=== PATIENT | male | born 1965 | race Caucasian/White ===

== ENCOUNTER 2017-11-02 09:25 | Outpatient (CLI) | payer OTHER ==
[~2017-11-02 09:25] MED LIST: Iopamidol 370 76% 100 ML VIAL ONE
--- NOTE | 2017-11-02 15:43 | CT ---
CT ABDOMEN AND PELVIS WITH AND WITHOUT CONTRAST: Date: 11/02/17 HISTORY: R16.0, liver mass. K70.9, alcoholic for disease. COMPARISON: Ultrasound dated 10/23/17. FINDINGS: The lung bases are clear. No pericardial effusion. Mild diffuse hepatic steatosis. Within the right lobe of the liver, abutting the capsule, is a 1.3 cm mass with arterial phase hypere nhancement, which is isoattenuating on the delayed phase of contrast. This is a well-defined nodule w ith somewhat of a peripheral hypodense halo. This has a single major feature of hepatocellular carcin woody using LI-RADS criteria, although using ancillary feature of ultrasound visibility as a discrete n odule, this can be upgrade from a LI-RADS 3 to a LI-RADS 4. Spleen and pancreas are unremarkable. Aortic contour is nonaneurysmal. Adrenal glands unremarkable. Advanced degenerative change of left hip. Moderate facet arthrosis lower lumbar spine. Type III-B lum bosacral transitional vertebra. IMPRESSION: 1.2 cm mass right lobe of liver abutting the capsule, hepatic segment 5, with arterial phase hyperenh ancement with isodensity on the portal venous phase. Given the additional ancillary feature of discre te nodule on ultrasound, this can be upgraded from a LI-RADS 3 to a LI-RADS 4: Probably HCC. Recomme nd correlation with AFP. At a minimum, if AFP levels are normal, a follow-up MRI liver protocol in 3 months is recommended. POS: [facility]
== END 2017-11-02 09:26 | disposition home or self-care (01) ==
LOC: SCSCT 09:25
PROVIDERS: ATTEND Family Medicine
DX: K70.9 Alcoholic liver disease, unspecified (principal); R16.0 Hepatomegaly, not elsewhere classified
CPT/HCPCS: 74178

== ENCOUNTER 2018-01-12 12:00 | Outpatient (CLI) | payer OTHER ==
--- NOTE | 2018-01-12 13:39 | RAD ---
LEFT HIP TWO VIEWS: INDICATIONS: Left hip pain for six months. COMPARISON: None. FINDINGS: There is severe osteoarthrosis of the left hip. No acute fracture or subluxation is evident. There is mild degenerative change of the left SI joint. Mild enthesopathic change is seen off the anterior pelvis. IMPRESSION: Severe left hip osteoarthrosis. POS: [facility]
== END 2018-01-12 12:01 | disposition home or self-care (01) ==
LOC: SCSRAD 12:00
PROVIDERS: ATTEND Anesthesiology Pain Medicine
DX: M16.12 Unilateral primary osteoarthritis, left hip (principal)
CPT/HCPCS: 36415; 80053; 82550; 83520; 83615; 85007; 85027; 85060; 85652; 86038; 86140; 86160; 86225; 86235; 86376; 86644; 86645; 86663; 86664; 86665; 87040; 87389; 87480; 87491; 87510; 87591; 87660; 99204; G0463

== ENCOUNTER 2018-01-28 09:15 | Inpatient (IN) | payer OTHER ==
[2018-02-10] MEDS ORDERED: Sodium Chloride 0.9% 100 ML ONE (06:13)
[2018-02-10] MEDS ORDERED: CEFAZOLIN 2 GM/50 ML BAG ONE (06:13)
[2018-02-10] MEDS ORDERED: Tranexamic Acid 1,000 MG/10 ML VIAL ONE (06:13)
[2018-02-10] MEDS ORDERED: Vancomycin HCl 1.5 GM in Sodium Chloride 0.9% 250 ML 300 ML IVPB SCH (06:15)
[2018-02-10] MEDS ORDERED: Midazolam HCl 2 mg/2 ml Vial ONE (06:23)
[2018-02-10] MEDS ORDERED: Fentanyl 100 MCG/2 ML VIAL ONE ×2 (06:23→07:01)
[2018-02-10] MEDS ORDERED: Lidocaine 1% w/Epinephrine 1:100K 30 ML VIAL ONE (07:25)
[2018-02-10] MEDS ORDERED: Bupivacaine/Epinephrine 0.25% 30 ML VIAL ONE (07:26)
[2018-02-10] MEDS ORDERED: diphenhydrAMINE 25 MG CAP PO PRN (07:29)
[2018-02-10] MEDS ORDERED: Zolpidem Tartrate 5 MG TAB PO PRN ×2 (07:29→07:30)
[2018-02-10] MEDS ORDERED: Fentanyl 100 MCG/2 ML VIAL SLOW IVP PRN ×2 (07:29)
[2018-02-10] MEDS ORDERED: Ondansetron PF 4 MG/2 ML Vial IVP PRN ×2 (07:29→07:30)
[2018-02-10] MEDS ORDERED: HYDROcodone/Acetaminophen 10/325 mg Tablet PO PRN ×2 (07:29)
[2018-02-10] MEDS ORDERED: Promethazine HCl 25 MG/ML VIAL IM PRN ×3 (07:29→07:52)
[2018-02-10] MEDS ORDERED: diphenhydrAMINE 50 MG/ML VIAL IVP PRN (07:30)
[2018-02-10] MEDS ORDERED: CEFAZOLIN/Water 2 GM/20 ML SYRINGE SLOW IVP SCH (07:30)
[2018-02-10] MEDS ORDERED: traMADol HCl 50 MG TAB PO PRN ×2 (07:30)
[2018-02-10] MEDS ORDERED: Hydrocerin (Eucerin) Cream 120 gm Jar TOP PRN (07:30)
[2018-02-10] MEDS ORDERED: Naloxone HCl 0.4 mg/ml Vial IV PRN (07:30)
[2018-02-10] MEDS ORDERED: diphenhydrAMINE 50 MG/ML VIAL IM PRN (07:30)
[2018-02-10] MEDS ORDERED: Naloxone HCl 0.4 mg/ml Vial IVP PRN (07:30)
[2018-02-10] MEDS ORDERED: Promethazine HCl 25 MG SUPP PR PRN (07:30)
[2018-02-10] MEDS ORDERED: Ondansetron HCl/PF 4 MG/2 ML Vial IVP PRN (07:52)
[2018-02-10] MEDS ORDERED: Promethazine HCl 25 MG/ML VIAL SLOW IVP PRN (07:52)
[2018-02-10] MEDS ORDERED: Fentanyl/Bupivacaine 100 ML EPIDURAL ONE (08:57)
[2018-02-10] MEDS ORDERED: Non-Formulary Item 1 EACH (Cetirizine Hcl [Zyrtec] 10 MG) PO SCH (09:00)
[2018-02-10] MEDS ORDERED: Fluticasone Propionate Nasal Spray 16 gm Bottle NASAL SCH (09:00)
--- NOTE | 2018-02-10 09:43 | RAD ---
TWO VIEW LEFT HIP: Indication: Post op total hip, left hip. FINDINGS: There is a left hip prosthesis in place without evidence of acute hardware complication. IMPRESSION: No acute complication with regard to the post-operative left hip. POS: [facility]
[2018-02-10] MEDS ORDERED: Eucerin (Mineral Oil/Petrolatum,White) 30 gm Jar TOP PRN (10:12)
[2018-02-10] MEDS ORDERED: Artificial Tears 18 DROP/0.9 ML EA EYE PRN (10:12)
[2018-02-10] MEDS ORDERED: Cepastat Lozenges 1 LOZ PO PRN (10:12)
[2018-02-10] MEDS ORDERED: Diabetic Tussin 200 MG/10 ML UDCUP PO PRN (10:12)
[2018-02-10] MEDS ORDERED: Sodium Chloride 0.65% Nasal 44 ML BOT EA NARE PRN (10:12)
[2018-02-10] MEDS ORDERED: hydrALAZINE 20 MG/ML VIAL SLOW IVP PRN (10:12)
[2018-02-10] MEDS ORDERED: Calcium Carbonate 500 MG ChewTAB PO PRN (10:12)
[2018-02-10] MEDS ORDERED: Loperamide HCl 2 MG CAP PO PRN (10:12)
--- NOTE | 2018-02-10 10:16 | PDOC.PN ---
- Subjective Encounter Start Date: 02/10/18 Encounter Start Time: 14:00 -: old records requested/rev Patient seen and examined. No new complaints. - Objective Resuscitation Status - Order Detail: 02/10/18 10:11 Resuscitation Status Routine Resuscitation Status: FULL: Full Resuscitation MAR Reviewed: Yes Vital Signs & Weight: Weight Weight 250 lb Additional [facility] Radiology Reviewed by me: Yes (hip xray reviewed) Phys Exam - Physical Examination Constitutional: NAD HEENT: PERRLA, moist MMs, sclera anicteric Neck: no JVD, supple Respiratory: no wheezing, no rales, no rhonchi Cardiovascular: RRR, no significant murmur, no rub Gastrointestinal: soft, non-tender, no distention, positive bowel sounds Musculoskeletal: no edema, pulses present surgical site with dressing, epidural in place Neurological: non-focal, normal sensation, moves all 4 limbs Lymphatic: no nodes Psychiatric: normal affect, A&O x 3 Skin: no rash, normal turgor Dx/Plan (1) Status post total hip replacement, left Code(s): Z96.642 - PRESENCE OF LEFT ARTIFICIAL HIP JOINT Status: Acute (2) Dyslipidemia Code(s): E78.5 - HYPERLIPIDEMIA, UNSPECIFIED Status: Chronic (3) Hypertension Code(s): I10 - ESSENTIAL (PRIMARY) HYPERTENSION Status: Chronic (4) Obesity (BMI 30.0-34.9) Code(s): E66.9 - OBESITY, UNSPECIFIED Status: Chronic - Plan cont current plan of care, PT/OT * home medication reconciled * medication reviewed as below * symptomatic treatment * epidural as per anesthesia * continue PT/OT as per [facility] protocol * continue aspirin for DVT prophylaxis as per protocol * continue pepcid for GI prophylaxis * code status- full code. * pain controlled * medically stable Review of Systems - Review of Systems ENT: negative: Ear Pain, Ear Discharge, Nose Pain, Nose Discharge, Nose Congestion, Mouth Pain, Mouth Swelling, Throat Pain, Throat Swelling, Other Respiratory: negative: Cough, Dry, Shortness of Breath, Hemoptysis, SOB with Excertion, Pleuritic Pain, Sputum, Wheezing Cardiovascular: negative: chest pain, palpitations, orthopnea, paroxysmal nocturnal dyspnea, edema, light headedness, other Gastrointestinal: negative: Nausea, Vomiting, Abdominal Pain, Diarrhea, Constipation, Melena, Hematochezia, Other Genitourinary: negative: Dysuria, Frequency, Incontinence, Hematuria, Retention , Other Musculoskeletal: negative: Neck Pain, Shoulder Pain, Arm Pain, Back Pain, Hand Pain, Leg Pain, Foot Pain, Other Skin: negative: Rash, Lesions, Raz, Bruising, Other - Medications/Allergies Allergies/Adverse Reactions: Allergies Allergy/AdvReac Type Severity Reaction Status Date / Time No Known Allergies Allergy Verified 02/10/18 10:57 Medications: Current Medications Acetaminophen (Tylenol) 650 mg PO Q4H PRN PRN Reason: Headache/Fever or Pain Hydrocodone Bitart/Acetaminophen ([place] 5/325) 1 tab PO Q4H PRN PRN Reason: Mild Pain 0-3 Hydrocodone Bitart/Acetaminophen ([place] 5/325) 2 tab PO Q4H PRN PRN Reason: For Moderate Pain 4-6 Artificial Tears (Tears Naturale) 2 drop EA EYE PRN PRN PRN Reason: Dry Eyes Aspirin (Ecotrin) 81 mg PO BID [facility] Atorvastatin Calcium (Lipitor) 20 mg PO HS [facility] Calcium Carbonate (Tums) 1,000 mg PO Q4H PRN PRN Reason: Heartburn or Indigestion Diphenhydramine HCl (Benadryl) 25 mg PO Q3H PRN PRN Reason: Itching Diphenhydramine HCl (Benadryl) 25 mg IM Q3H PRN PRN Reason: Itching Diphenhydramine HCl (Benadryl) 25 mg IVP Q3H PRN PRN Reason: Itching Emollient Cream (Hydrocerin Cream) 0 gm TOP PRN PRN PRN Reason: Itching Famotidine (Pepcid) 20 mg PO BID [facility] Fentanyl (Pacu-Sublimaze) 50 mcg SLOW IVP Q10MIN PRN PRN Reason: Moderate to Severe Pain (6-10) Stop: 02/10/18 10:52 Ferrous Gluconate (Fergon) 324 mg PO BID [facility] Fluticasone Propionate (Flonase Nasal [place]) 0 gm NASAL DAILY [facility] Guaifenesin (Robitussin Sf) 200 mg PO Q4H PRN PRN Reason: Cough Lisinopril/HCTZ (Prinizide 10-12.5) 1 tab PO DAILY [facility] Hydralazine HCl (Apresoline) 10 mg SLOW IVP Q4H PRN PRN Reason: SBP > 180 and HR < 70 Vancomycin HCl 1.5 gm/ Sodium (Chloride) 300 mls @ 200 mls/hr IVPB ONCALL-OR [facility] Fentanyl Citrate (Fentanyl/Bupivacaine) 100 mls @ 0 mls/hr EPIDURAL INF [facility] Sodium Chloride (Normal Saline 0.9%) 1,000 mls @ 100 mls/hr IV .Q10H [facility] Cefazolin Sodium/Dextrose 2 gm (/ Device) 50 mls @ 100 mls/hr IVPB Q8HR [facility] Stop: 02/10/18 22:29 Iron/Minerals/Multivitamins (Theragran M) 1 tab PO DAILY [facility] Ketorolac Tromethamine (Toradol) 30 mg IVP Q6HR [facility] Stop: 02/12/18 06:01 Loperamide HCl (Imodium) 2 mg PO PRN PRN PRN Reason: Diarrhea/Loose Stools Loratadine (Claritin) 10 mg PO DAILY [facility] Mineral Oil/White Petrolatum (Eucerin Cream) 0 gm TOP BIDPRN PRN PRN Reason: Dry Skin Miscellaneous Information (Communication Order-Pharmacy) 1 each FS ASDIR [facility] Naloxone HCl (Narcan) 0.2 mg IV Q5MIN PRN PRN Reason: RR <=8 OR OBTUNDED/UNAROUSABLE Naloxone HCl (Narcan) 0.1 mg IVP Q15MIN PRN PRN Reason: URINARY RETENTION Ondansetron HCl (Zofran) 4 mg IVP Q6H PRN PRN Reason: Nausea/Vomiting Ondansetron HCl (Pacu-Zofran) 4 mg IVP ONE PRN PRN Reason: Nausea/Vomiting Stop: 02/10/18 10:52 Promethazine HCl (Phenergan) 12.5 mg IM Q4H PRN PRN Reason: Nausea Promethazine HCl (Phenergan Suppository) 25 mg NE Q4H PRN PRN Reason: Nausea/Vomiting Promethazine HCl (Pacu-Phenergan) 6.25 mg SLOW IVP ONE PRN PRN Reason: Nausea/Vomiting Stop: 02/10/18 10:52 Promethazine HCl (Pacu-Phenergan) 6.25 mg IM ONE PRN PRN Reason: Nausea/Vomiting Stop: 02/10/18 10:52 Senna/Docusate Sodium (Senokot S) 2 tab PO BID [facility] Sodium Chloride (Flush - Normal Saline) 10 ml IVF PRN PRN PRN Reason: Saline Flush Sodium Chloride ([place] Nasal [place] 0.65%) 0 ml EA NARE QIDPRN PRN PRN Reason: Nasal Congestion Throat Lozenges (Cepastat Lozenges) 1 stevie PO Q2H PRN PRN Reason: Sore Throat Tramadol HCl (Ultram) 50 mg PO Q6H PRN PRN Reason: Mild Pain 1-3 Tramadol HCl (Ultram) 100 mg PO Q6H PRN PRN Reason: Moderate Pain 4-6 Zolpidem Tartrate (Ambien) 5 mg PO HSPRN PRN PRN Reason: Insomnia
[2018-02-10] MEDS: Sodium Chloride 0.9% 1,000 ML IV SCH ×2 (10:37→14:38)
[2018-02-10] MEDS: Aspirin 81 mg Enteric Coated Tablet PO SCH ×2 (10:37→21:19)
[2018-02-10] MEDS: Ferrous Gluconate 324 MG TAB PO SCH ×2 (10:38→21:20)
[2018-02-10] MEDS: Multivitamin W/ Minerals 1 TAB PO SCH (10:38)
[2018-02-10] MEDS: Senokot S 8.6-50 MG TAB PO SCH ×2 (10:38→21:20)
[2018-02-10] MEDS: Loratadine 10 MG TAB PO SCH (10:38)
--- NOTE | 2018-02-10 13:46 | OP ---
DATE OF PROCEDURE: 02/10/2018 PREOPERATIVE DIAGNOSIS: End-stage bicompartmental osteoarthritis, left hip. POSTOPERATIVE DIAGNOSIS: End-stage bicompartmental osteoarthritis, left hip. PROCEDURE PERFORMED: Press-fit left total hip arthroplasty. MED ADMIN: Adan Cordero PA-C ANESTHESIA: General via ET tube augmented with indwelling epidural. COMPONENTS USED: [employer] trident PSL 52 mm press-fit acetabular shell with a 10-degree 6-mm polyethylene insert. An Accolade press-fit 3.5 hip stem with a Biolox ceramic 36 mm femoral head with a +2.5 offset neck length. ESTIMATED BLOOD LOSS: Less than 100. FINDINGS: End-stage severe degenerative bicompartmental disease, bone-on- bone orthosis, periarticular osteophyte formation, large serous effusion, hypertrophic synovium. DRAINS: None. SPECIMENS: None. COMPLICATIONS: None. COUNTS: Correct. INDICATION FOR SURGERY: Jorje is a 52-year-old white male, who has had progressive left hip, groin and thigh pain with problem with standing and walking for the last 5 to 7 years. He has failed conservative management and elected to proceed with total hip arthroplasty as definitive treatment of his pain. PROCEDURE IN DETAIL: After informed consent was obtained in the preoperative holding area, the patient was taken to the operative suite where general anesthesia was induced. The patient was then positioned in the lateral decubitus position. The hip was then prepped and draped in usual sterile fashion. The patient received preoperative antibiotics. Prior to incision, time-out was called and all members of the surgical team agreed upon site, surgeon, and patient. After this, a longitudinal incision was made directly over the trochanter, noted by palpation extending 2 fingerbreadths above and below the trochanter. The deeper subcutaneous layer was undermined with Bovie electrocautery. The iliotibial band was encountered and incised sharply and the plane below this was developed bluntly. A Charnley retractor was placed to hold this opened. The lateral aspect of the trochanter and the abductor muscles were encountered and then reflected anteriorly off the trochanter using Bovie electrocautery. Once this was completed, the anterior capsule was then encountered and identified and copious capsulotomy was carried out, exposing the femoral neck and head. Dislocation maneuver was then performed and an in situ provisional neck cut was then made using the oscillating saw. Attention was then turned to acetabular preparation. Sequential reaming was carried out up to the appropriate diameter and a trial was then malleted into place with good firm resistance and no pullout. The permanent acetabular shell was then malleted squarely into place, as was the appropriate liner. Once completed, the wound was copiously irrigated and attention was then turned to femoral preparation. Flexion and external rotation were performed of the exposed thigh and femoral elevators were then placed at the proximal aspect of the wound. Canal finder was used to establish the length of the canal and sequential reaming was carried out, followed by broaching. Once the appropriate stability was established with the trial broaches with flexion, extension and rotational stability, we did trial with neutral and 2 mm offset incremental necks. Once the appropriate size was decided upon, with good stability noted with flexion, extension, internal and external rotation and shuck being negative, we removed the femoral trial broach and malleted into place the permanent prosthesis with good firm fit, which was also stable to rotation. Again, the hip felt very stable to flexion, extension, internal and external rotation. Leg lengths appeared near anatomic clinically and we were quite happy with prosthesis placement. Copious irrigation was then carried out through the entirety of the wound. Primary closure of the abductors was accomplished with interrupted #2 Vicryl [id number] stitches and the IT band was then closed with interrupted #2 Vicryl, oversewn with a #2 running barbed Quill stitch. Subcutaneous fascia was closed with running barbed Quill stitch and a subcuticular Monocryl barbed Quill stitch was used for skin closure and augmented with skin cement. A sterile dressing was applied. The procedure was terminated without any complication. All counts were correct. The patient was awakened in the operative suite and taken to the recovery room in stable condition. Job ID: [id number] [facility]
[2018-02-10] MEDS: Ketorolac Tromethamine 30 MG/ML VIAL IVP SCH ×2 (13:54→18:17)
[2018-02-10] MEDS: Lisinopril/Hydrochlorothiazide 10 mg/12.5 mg Tablet PO SCH (13:54)
[2018-02-10] MEDS: CEFAZOLIN 2 GM/50 ML-DEXTROSE 2 GM in Premix Bag 1 BAG IVPB SCH ×2 (14:33→21:20)
[2018-02-10] MEDS ORDERED: Ondansetron PF 4 MG/2 ML Vial ONE (18:33)
[2018-02-10] MEDS ORDERED: PHENYLEPHRINE-NS 100 MCG/ML 10 ML SYRINGE ONE (18:33)
[2018-02-10] MEDS ORDERED: ePHEDrine/0.9% NaCl/PF SYRINGE 50 mg/10 ml ONE (18:33)
[2018-02-10] MEDS ORDERED: Ketorolac Tromethamine 30 MG/ML VIAL ONE (18:33)
[2018-02-10] MEDS ORDERED: Lidocaine 1% PF 5 ML VIAL ONE (18:33)
[2018-02-10] MEDS ORDERED: Glycopyrrolate 0.2 MG/ML 5 ML SYRINGE ONE (18:33)
[2018-02-10] MEDS ORDERED: PROPOFOL 200 MG/20 ML VIAL ONE (18:33)
[2018-02-10] MEDS: Famotidine 20 MG TAB PO SCH (21:19)
[2018-02-10] MEDS: Atorvastatin Calcium 20 MG TAB PO SCH (21:25)
[2018-02-11] MEDS: Ketorolac Tromethamine 30 MG/ML VIAL IVP SCH ×4 (00:02→16:59)
[2018-02-11] MEDS: Acetaminophen 325 MG TAB PO PRN ×2 (00:06→21:32)
[2018-02-11] MEDS: Fentanyl/Bupivacaine 100 ML EPIDURAL SCH ×2 (02:10→19:26)
[2018-02-11] MEDS: Sodium Chloride 0.9% 1,000 ML IV SCH ×2 (02:14→13:27)
[2018-02-11 07:28] LABS: Hemoglobin 11.6 g/dL (14.0-18.0); Mean Corpuscular HGB CONC 33.5 g/dL (32.0-36.0); Mean Corpuscular Hemoglobin 30.3 pg (27.0-31.0); Mean Corpuscular Volume 90.4 fL (78.0-98.0); Mean Platelet Volume 8.9 fL (7.4-10.4); Platelet Count 218 thou/uL (130-400); RBC Distribution Width 11.3 % (11.5-14.5); Red Blood Cell (RBC) Count 3.83 mill/uL (4.70-6.10); White Blood Cell (WBC) Count 11.8 thou/uL (4.8-10.8)
[2018-02-11] MEDS: Aspirin 81 mg Enteric Coated Tablet PO SCH ×2 (08:45→21:33)
[2018-02-11] MEDS: Famotidine 20 MG TAB PO SCH ×2 (08:46→21:32)
[2018-02-11] MEDS: Loratadine 10 MG TAB PO SCH (08:47)
[2018-02-11] MEDS: Multivitamin W/ Minerals 1 TAB PO SCH (08:47)
[2018-02-11] MEDS: Ferrous Gluconate 324 MG TAB PO SCH ×2 (08:47→21:32)
[2018-02-11] MEDS: Senokot S 8.6-50 MG TAB PO SCH ×2 (08:47→21:32)
[2018-02-11] MEDS: Lisinopril/Hydrochlorothiazide 10 mg/12.5 mg Tablet PO SCH (08:49)
[2018-02-11] MEDS: Fluticasone Propionate Nasal Spray 16 gm Bottle NASAL SCH (11:43)
--- NOTE | 2018-02-11 12:45 | PDOC.PN ---
- Subjective Encounter Start Date: 02/11/18 Encounter Start Time: 07:30 Patient seen and examined. No new complaints. No overnight events - Objective Resuscitation Status - Order Detail: 02/10/18 10:11 Resuscitation Status Routine Resuscitation Status: FULL: Full Resuscitation MAR Reviewed: Yes Vital Signs & Weight: Vital Signs (12 hours) Temp Pulse Resp BP Pulse Ox 02/11/18 11:40 98.8 F 89 16 127/74 98 02/11/18 08:49 95 02/11/18 07:25 100.1 F H 95 20 109/64 92 L 02/11/18 04:33 99.5 F 86 20 96/61 97 Weight Weight 250 lb I&O: 02/10/18 02/11/18 02/12/18 06:59 06:59 06:59 Intake Total 3000 Output Total 300 Balance 2700 Result Diagrams: 02/11/18 06:39 Phys Exam - Physical Examination Constitutional: NAD HEENT: PERRLA, moist MMs, sclera anicteric Neck: no JVD, supple Respiratory: no wheezing, no rales, no rhonchi Cardiovascular: RRR, no significant murmur, no rub Gastrointestinal: soft, non-tender, no distention, positive bowel sounds Musculoskeletal: no edema, pulses present surgical site with dressing, epidural in place Neurological: non-focal, normal sensation, moves all 4 limbs Lymphatic: no nodes Psychiatric: normal affect, A&O x 3 Skin: no rash, normal turgor Dx/Plan (1) Status post total hip replacement, left Code(s): Z96.642 - PRESENCE OF LEFT ARTIFICIAL HIP JOINT Status: Acute (2) Dyslipidemia Code(s): E78.5 - HYPERLIPIDEMIA, UNSPECIFIED Status: Chronic (3) Hypertension Code(s): I10 - ESSENTIAL (PRIMARY) HYPERTENSION Status: Chronic (4) Obesity (BMI 30.0-34.9) Code(s): E66.9 - OBESITY, UNSPECIFIED Status: Chronic (5) Anemia, normocytic normochromic Code(s): D64.9 - ANEMIA, UNSPECIFIED Status: Acute - Plan cont current plan of care, PT/OT, nursing home social worker * medication reviewed as below * symptomatic treatment * epidural as per anesthesia * continue PT/OT as per [facility] protocol * continue aspirin for DVT prophylaxis as per protocol * continue pepcid for GI prophylaxis * code status- full code. * pain controlled * medically stable. Review of Systems - Review of Systems ENT: negative: Ear Pain, Ear Discharge, Nose Pain, Nose Discharge, Nose Congestion, Mouth Pain, Mouth Swelling, Throat Pain, Throat Swelling, Other Respiratory: negative: Cough, Dry, Shortness of Breath, Hemoptysis, SOB with Excertion, Pleuritic Pain, Sputum, Wheezing Cardiovascular: negative: chest pain, palpitations, orthopnea, paroxysmal nocturnal dyspnea, edema, light headedness, other Gastrointestinal: negative: Nausea, Vomiting, Abdominal Pain, Diarrhea, Constipation, Melena, Hematochezia, Other Genitourinary: negative: Dysuria, Frequency, Incontinence, Hematuria, Retention , Other Musculoskeletal: negative: Neck Pain, Shoulder Pain, Arm Pain, Back Pain, Hand Pain, Leg Pain, Foot Pain, Other - Medications/Allergies Allergies/Adverse Reactions: Allergies Allergy/AdvReac Type Severity Reaction Status Date / Time No Known Allergies Allergy Verified 02/10/18 10:57 Medications: Current Medications Acetaminophen (Tylenol) 650 mg PO Q4H PRN PRN Reason: Headache/Fever or Pain Last Admin: 02/11/18 00:06 Dose: 650 mg Hydrocodone Bitart/Acetaminophen ([place] 5/325) 1 tab PO Q4H PRN PRN Reason: Mild Pain 0-3 Hydrocodone Bitart/Acetaminophen ([place] 5/325) 2 tab PO Q4H PRN PRN Reason: For Moderate Pain 4-6 Artificial Tears (Tears Naturale) 2 drop EA EYE PRN PRN PRN Reason: Dry Eyes Aspirin (Ecotrin) 81 mg PO BID [facility] Last Admin: 02/11/18 08:45 Dose: 81 mg Atorvastatin Calcium (Lipitor) 20 mg PO HS [facility] Last Admin: 02/10/18 21:25 Dose: 20 mg Calcium Carbonate (Tums) 1,000 mg PO Q4H PRN PRN Reason: Heartburn or Indigestion Diphenhydramine HCl (Benadryl) 25 mg PO Q3H PRN PRN Reason: Itching Diphenhydramine HCl (Benadryl) 25 mg IM Q3H PRN PRN Reason: Itching Diphenhydramine HCl (Benadryl) 25 mg IVP Q3H PRN PRN Reason: Itching Emollient Cream (Hydrocerin Cream) 0 gm TOP PRN PRN PRN Reason: Itching Famotidine (Pepcid) 20 mg PO BID [facility] Last Admin: 02/11/18 08:46 Dose: 20 mg Ferrous Gluconate (Fergon) 324 mg PO BID [facility] Last Admin: 02/11/18 08:47 Dose: 324 mg Fluticasone Propionate (Flonase Nasal [place]) 0 gm NASAL DAILY [facility] Last Admin: 02/11/18 11:43 Dose: Not Given Guaifenesin (Robitussin Sf) 200 mg PO Q4H PRN PRN Reason: Cough Lisinopril/HCTZ (Prinizide 10-12.5) 1 tab PO DAILY [facility] Last Admin: 02/11/18 08:49 Dose: Not Given Hydralazine HCl (Apresoline) 10 mg SLOW IVP Q4H PRN PRN Reason: SBP > 180 and HR < 70 Vancomycin HCl 1.5 gm/ Sodium (Chloride) 300 mls @ 200 mls/hr IVPB ONCALL-OR [facility] Fentanyl Citrate (Fentanyl/Bupivacaine) 100 mls @ 0 mls/hr EPIDURAL INF [facility] Last Admin: 02/11/18 02:10 Dose: 100 mls Sodium Chloride (Normal Saline 0.9%) 1,000 mls @ 100 mls/hr IV .Q10H [facility] Last Admin: 02/11/18 02:14 Dose: 1,000 mls Iron/Minerals/Multivitamins (Theragran M) 1 tab PO DAILY [facility] Last Admin: 02/11/18 08:47 Dose: 1 tab Ketorolac Tromethamine (Toradol) 30 mg IVP Q6HR [facility] Stop: 02/12/18 06:01 Last Admin: 02/11/18 11:45 Dose: 30 mg Loperamide HCl (Imodium) 2 mg PO PRN PRN PRN Reason: Diarrhea/Loose Stools Loratadine (Claritin) 10 mg PO DAILY [facility] Last Admin: 02/11/18 08:47 Dose: 10 mg Mineral Oil/White Petrolatum (Eucerin Cream) 0 gm TOP BIDPRN PRN PRN Reason: Dry Skin Miscellaneous Information (Communication Order-Pharmacy) 1 each FS ASDIR [facility] Naloxone HCl (Narcan) 0.2 mg IV Q5MIN PRN PRN Reason: RR <=8 OR OBTUNDED/UNAROUSABLE Naloxone HCl (Narcan) 0.1 mg IVP Q15MIN PRN PRN Reason: URINARY RETENTION Ondansetron HCl (Zofran) 4 mg IVP Q6H PRN PRN Reason: Nausea/Vomiting Promethazine HCl (Phenergan) 12.5 mg IM Q4H PRN PRN Reason: Nausea Promethazine HCl (Phenergan Suppository) 25 mg [place] Q4H PRN PRN Reason: Nausea/Vomiting Senna/Docusate Sodium (Senokot S) 2 tab PO BID [facility] Last Admin: 02/11/18 08:47 Dose: 2 tab Sodium Chloride (Flush - Normal Saline) 10 ml IVF PRN PRN PRN Reason: Saline Flush Sodium Chloride ([place] Nasal [place] 0.65%) 0 ml EA NARE QIDPRN PRN PRN Reason: Nasal Congestion Throat Lozenges (Cepastat Lozenges) 1 stevie PO Q2H PRN PRN Reason: Sore Throat Tramadol HCl (Ultram) 50 mg PO Q6H PRN PRN Reason: Mild Pain 1-3 Tramadol HCl (Ultram) 100 mg PO Q6H PRN PRN Reason: Moderate Pain 4-6 Zolpidem Tartrate (Ambien) 5 mg PO HSPRN PRN PRN Reason: Insomnia
[2018-02-11] MEDS: Atorvastatin Calcium 20 MG TAB PO SCH (21:32)
[2018-02-12] MEDS: Sodium Chloride 0.9% 1,000 ML IV SCH ×3 (00:09→18:27)
[2018-02-12] MEDS: Ketorolac Tromethamine 30 MG/ML VIAL IVP SCH ×2 (00:35→05:26)
[2018-02-12 07:45] LABS: Hemoglobin 11.3 g/dL (14.0-18.0); Mean Corpuscular Hemoglobin 31.6 pg (27.0-31.0); Mean Corpuscular Volume 90.4 fL (78.0-98.0); Mean Platelet Volume 8.4 fL (7.4-10.4); Platelet Count 189 thou/uL (130-400); RBC Distribution Width 11.1 % (11.5-14.5); Red Blood Cell (RBC) Count 3.56 mill/uL (4.70-6.10); White Blood Cell (WBC) Count 12.5 thou/uL (4.8-10.8)
[2018-02-12] MEDS: Senokot S 8.6-50 MG TAB PO SCH ×2 (08:22→20:37)
[2018-02-12] MEDS: Multivitamin W/ Minerals 1 TAB PO SCH (08:22)
[2018-02-12] MEDS: Ferrous Gluconate 324 MG TAB PO SCH ×2 (08:22→20:38)
[2018-02-12] MEDS: Famotidine 20 MG TAB PO SCH ×2 (08:23→20:37)
[2018-02-12] MEDS: Aspirin 81 mg Enteric Coated Tablet PO SCH ×2 (08:23→20:38)
[2018-02-12] MEDS: Lisinopril/Hydrochlorothiazide 10 mg/12.5 mg Tablet PO SCH (08:24)
[2018-02-12] MEDS: Loratadine 10 MG TAB PO SCH (08:24)
[2018-02-12] MEDS: Fluticasone Propionate Nasal Spray 16 gm Bottle NASAL SCH (08:25)
--- NOTE | 2018-02-12 09:10 | PDOC.PN ---
- Subjective Encounter Start Date: 02/12/18 Encounter Start Time: 08:30 Patient seen and examined. No new complaints. No overnight events - Objective Resuscitation Status - Order Detail: 02/10/18 10:11 Resuscitation Status Routine Resuscitation Status: FULL: Full Resuscitation MAR Reviewed: Yes Vital Signs & Weight: Vital Signs (12 hours) Temp Pulse Resp BP Pulse Ox 02/12/18 08:24 74 02/12/18 07:44 98.5 F 85 18 99/63 94 L 02/12/18 04:00 98.7 F 74 16 94/60 95 02/12/18 00:00 100.0 F H 88 18 114/71 94 L Weight Weight 250 lb I&O: 02/11/18 02/12/18 02/13/18 06:59 06:59 06:59 Intake Total 3000 1140 Output Total 300 1875 Balance 2700 -735 Result Diagrams: 02/12/18 07:24 Phys Exam - Physical Examination Constitutional: NAD HEENT: PERRLA, moist MMs, sclera anicteric Neck: no JVD, supple Respiratory: no wheezing, no rales, no rhonchi Cardiovascular: RRR, no significant murmur, no rub Gastrointestinal: soft, non-tender, no distention, positive bowel sounds Musculoskeletal: no edema, pulses present Neurological: non-focal, normal sensation, moves all 4 limbs Lymphatic: no nodes Psychiatric: normal affect, A&O x 3 Skin: no rash, normal turgor Dx/Plan (1) Status post total hip replacement, left Code(s): Z96.642 - PRESENCE OF LEFT ARTIFICIAL HIP JOINT Status: Acute (2) Dyslipidemia Code(s): E78.5 - HYPERLIPIDEMIA, UNSPECIFIED Status: Chronic (3) Hypertension Code(s): I10 - ESSENTIAL (PRIMARY) HYPERTENSION Status: Chronic (4) Obesity (BMI 30.0-34.9) Code(s): E66.9 - OBESITY, UNSPECIFIED Status: Chronic - Plan cont current plan of care * medication reviewed as below * symptomatic treatment * see my discharge summery * will sign off. Review of Systems - Review of Systems ENT: negative: Ear Pain, Ear Discharge, Nose Pain, Nose Discharge, Nose Congestion, Mouth Pain, Mouth Swelling, Throat Pain, Throat Swelling, Other Respiratory: negative: Cough, Dry, Shortness of Breath, Hemoptysis, SOB with Excertion, Pleuritic Pain, Sputum, Wheezing Cardiovascular: negative: chest pain, palpitations, orthopnea, paroxysmal nocturnal dyspnea, edema, light headedness, other Gastrointestinal: negative: Nausea, Vomiting, Abdominal Pain, Diarrhea, Constipation, Melena, Hematochezia, Other Genitourinary: negative: Dysuria, Frequency, Incontinence, Hematuria, Retention , Other Musculoskeletal: negative: Neck Pain, Shoulder Pain, Arm Pain, Back Pain, Hand Pain, Leg Pain, Foot Pain, Other - Medications/Allergies Allergies/Adverse Reactions: Allergies Allergy/AdvReac Type Severity Reaction Status Date / Time No Known Allergies Allergy Verified 02/10/18 10:57 Medications: Current Medications Acetaminophen (Tylenol) 650 mg PO Q4H PRN PRN Reason: Headache/Fever or Pain Last Admin: 02/11/18 21:32 Dose: 650 mg Hydrocodone Bitart/Acetaminophen ([place] 5/325) 1 tab PO Q4H PRN PRN Reason: Mild Pain 0-3 Hydrocodone Bitart/Acetaminophen ([place] 5/325) 2 tab PO Q4H PRN PRN Reason: For Moderate Pain 4-6 Artificial Tears (Tears Naturale) 2 drop EA EYE PRN PRN PRN Reason: Dry Eyes Aspirin (Ecotrin) 81 mg PO BID [facility] Last Admin: 02/12/18 08:23 Dose: 81 mg Atorvastatin Calcium (Lipitor) 20 mg PO HS [facility] Last Admin: 02/11/18 21:32 Dose: 20 mg Calcium Carbonate (Tums) 1,000 mg PO Q4H PRN PRN Reason: Heartburn or Indigestion Diphenhydramine HCl (Benadryl) 25 mg PO Q3H PRN PRN Reason: Itching Diphenhydramine HCl (Benadryl) 25 mg IM Q3H PRN PRN Reason: Itching Diphenhydramine HCl (Benadryl) 25 mg IVP Q3H PRN PRN Reason: Itching Emollient Cream (Hydrocerin Cream) 0 gm TOP PRN PRN PRN Reason: Itching Famotidine (Pepcid) 20 mg PO BID [facility] Last Admin: 02/12/18 08:23 Dose: 20 mg Ferrous Gluconate (Fergon) 324 mg PO BID [facility] Last Admin: 02/12/18 08:22 Dose: 324 mg Fluticasone Propionate (Flonase Nasal [place]) 0 gm NASAL DAILY [facility] Last Admin: 02/12/18 08:25 Dose: Not Given Guaifenesin (Robitussin Sf) 200 mg PO Q4H PRN PRN Reason: Cough Lisinopril/HCTZ (Prinizide 10-12.5) 1 tab PO DAILY [facility] Last Admin: 02/12/18 08:24 Dose: Not Given Hydralazine HCl (Apresoline) 10 mg SLOW IVP Q4H PRN PRN Reason: SBP > 180 and HR < 70 Vancomycin HCl 1.5 gm/ Sodium (Chloride) 300 mls @ 200 mls/hr IVPB ONCALL-OR [facility] Fentanyl Citrate (Fentanyl/Bupivacaine) 100 mls @ 0 mls/hr EPIDURAL INF [facility] Last Admin: 02/11/18 19:26 Dose: 100 mls Sodium Chloride (Normal Saline 0.9%) 1,000 mls @ 100 mls/hr IV .Q10H [facility] Last Admin: 02/12/18 08:29 Dose: Not Given Iron/Minerals/Multivitamins (Theragran M) 1 tab PO DAILY [facility] Last Admin: 02/12/18 08:22 Dose: 1 tab Loperamide HCl (Imodium) 2 mg PO PRN PRN PRN Reason: Diarrhea/Loose Stools Loratadine (Claritin) 10 mg PO DAILY [facility] Last Admin: 02/12/18 08:24 Dose: 10 mg Mineral Oil/White Petrolatum (Eucerin Cream) 0 gm TOP BIDPRN PRN PRN Reason: Dry Skin Miscellaneous Information (Communication Order-Pharmacy) 1 each FS ASDIR [facility] Naloxone HCl (Narcan) 0.2 mg IV Q5MIN PRN PRN Reason: RR <=8 OR OBTUNDED/UNAROUSABLE Naloxone HCl (Narcan) 0.1 mg IVP Q15MIN PRN PRN Reason: URINARY RETENTION Ondansetron HCl (Zofran) 4 mg IVP Q6H PRN PRN Reason: Nausea/Vomiting Promethazine HCl (Phenergan) 12.5 mg IM Q4H PRN PRN Reason: Nausea Promethazine HCl (Phenergan Suppository) 25 mg [place] Q4H PRN PRN Reason: Nausea/Vomiting Senna/Docusate Sodium (Senokot S) 2 tab PO BID [facility] Last Admin: 02/12/18 08:22 Dose: 2 tab Sodium Chloride (Flush - Normal Saline) 10 ml IVF PRN PRN PRN Reason: Saline Flush Last Admin: 02/12/18 05:26 Dose: 10 ml Sodium Chloride ([place] Nasal [place] 0.65%) 0 ml EA NARE QIDPRN PRN PRN Reason: Nasal Congestion Throat Lozenges (Cepastat Lozenges) 1 stevie PO Q2H PRN PRN Reason: Sore Throat Tramadol HCl (Ultram) 50 mg PO Q6H PRN PRN Reason: Mild Pain 1-3 Tramadol HCl (Ultram) 100 mg PO Q6H PRN PRN Reason: Moderate Pain 4-6 Zolpidem Tartrate (Ambien) 5 mg PO HSPRN PRN PRN Reason: Insomnia
--- NOTE | 2018-02-12 10:16 | DIS ---
DATE OF ADMISSION: 02/10/2018 DATE OF DISCHARGE: 02/12/2018 PRIMARY CARE PHYSICIAN: Dr. Shant Moran. DISCHARGE DISPOSITION: Home. PRIMARY DISCHARGE DIAGNOSIS: Status post left total hip replacement. SECONDARY DISCHARGE DIAGNOSES: 1. Anemia, normocytic normochromic. 2. Hypertension. 3. Dyslipidemia. 4. Obesity with BMI 33. PRIMARY PROCEDURE/OPERATION: Left total hip replacement. RADIOLOGICAL INVESTIGATION: Hip x-ray. SIGNIFICANT LABORATORY DATA: WBC 12.5, hemoglobin 11.3, and platelets 189. DISCHARGE MEDICATIONS: 1. Aspirin 81 mg p.o. b.i.d. for DVT prophylaxis. 2. [place] 5 one or two tablets q.4 hourly p.r.n. 3. Prinzide /.5 one tablet daily. 4. Motrin 800 mg p.o. p.r.n. 5. Flonase nasal spray daily. 6. Cetirizine 10 mg daily. 7. Lipitor 20 mg p.o. daily. CONTRAINDICATION: None. CODE STATUS: Full code. INPATIENT FORMULA CHECKER: Dr. Melvin Dennis was primary while in the hospital, [facility] Team was consulted for medical co-management. TEST RESULT PENDING ON DISCHARGE: None. ALLERGIES: NO KNOWN DRUG ALLERGIES. DISCHARGE PLAN: Post-hospital, the patient will follow up with primary care physician in 1 week. The patient has appointment with Dr. Dennis on March 03, 2018 at 1:45 p.m. HOSPITAL COURSE: A 52-year-old male with above-mentioned medical problem, who was electively admitted by Dr. Dennis for left hip replacement, which was done on February 10, 2018, without any complications. Postoperatively, a [facility] Sound Team was consulted for medical comanagement. The patient's all medical problems remained stable. We continued all his home medication. The patient had no epidural block for a while in the hospital. He was given aspirin for DVT prophylaxis. He did very well with [facility] protocol treatment. The patient is planned for discharge today by primary team. The patient is seen and examined at bedside today. Please see my progress note from today for further details. Job ID: [id number]
[2018-02-12] MEDS: HYDROcodone/Acetaminophen 5/325 mg Tablet PO PRN ×2 (14:45→20:38)
[2018-02-12] MEDS: Acetaminophen 325 MG TAB PO PRN (16:26)
[2018-02-12] MEDS: Atorvastatin Calcium 20 MG TAB PO SCH (20:37)
[2018-02-13] MEDS: diphenhydrAMINE 25 MG CAP PO PRN ×2 (00:13→22:11)
[2018-02-13] MEDS: Acetaminophen 325 MG TAB PO PRN (00:13)
[2018-02-13] MEDS: Sodium Chloride 0.9% 1,000 ML IV SCH ×2 (06:25→14:18)
[2018-02-13 06:50] LABS: Hemoglobin 10.8 g/dL (14.0-18.0); Mean Corpuscular HGB CONC 33.6 g/dL (32.0-36.0); Mean Corpuscular Hemoglobin 30.3 pg (27.0-31.0); Mean Corpuscular Volume 90.4 fL (78.0-98.0); Mean Platelet Volume 8.7 fL (7.4-10.4); Platelet Count 207 thou/uL (130-400); RBC Distribution Width 11.2 % (11.5-14.5); Red Blood Cell (RBC) Count 3.56 mill/uL (4.70-6.10); White Blood Cell (WBC) Count 12.1 thou/uL (4.8-10.8)
[2018-02-13] MEDS: HYDROcodone/Acetaminophen 5/325 mg Tablet PO PRN ×3 (07:54→22:10)
[2018-02-13] MEDS: Ferrous Gluconate 324 MG TAB PO SCH ×2 (07:55→20:20)
[2018-02-13] MEDS: Aspirin 81 mg Enteric Coated Tablet PO SCH ×2 (07:56→20:20)
[2018-02-13] MEDS: Multivitamin W/ Minerals 1 TAB PO SCH (07:56)
[2018-02-13] MEDS: Loratadine 10 MG TAB PO SCH (07:56)
[2018-02-13] MEDS: Famotidine 20 MG TAB PO SCH ×2 (07:56→20:21)
[2018-02-13] MEDS: Senokot S 8.6-50 MG TAB PO SCH ×2 (07:56→20:20)
[2018-02-13] MEDS: Fluticasone Propionate Nasal Spray 16 gm Bottle NASAL SCH (07:57)
[2018-02-13] MEDS: Lisinopril/Hydrochlorothiazide 10 mg/12.5 mg Tablet PO SCH (07:57)
--- NOTE | 2018-02-13 15:11 | ULT ---
SOFT TISSUE SONOGRAM RIGHT BUTTOCKS: HISTORY: Infection. Blister. FINDINGS/IMPRESSION: Sonographic evaluation of the area of concern at the right buttocks shows edematous fluid within the subcutaneous tissues. No focal masses or fluid collections are visible. POS: [facility]
[2018-02-13] MEDS: Atorvastatin Calcium 20 MG TAB PO SCH (20:20)
[2018-02-14] MEDS: Sodium Chloride 0.9% 1,000 ML IV SCH ×2 (01:07→11:59)
[2018-02-14] MEDS: diphenhydrAMINE 25 MG CAP PO PRN (02:59)
[2018-02-14] MEDS: HYDROcodone/Acetaminophen 5/325 mg Tablet PO PRN ×2 (02:59→07:38)
--- NOTE | 2018-02-14 03:46 | CON ---
DATE OF CONSULTATION: REASON FOR CONSULT: Possible right buttock abscess. HISTORY: Mr. Sanders is a 52-year-old man, who underwent a left hip replacement by Dr. Dennis. He has been doing well from the standpoint of his surgery, but ever since he woke up from the operation, he has had persistent pain in his right buttock of unclear etiology. He was noted to have a blister in the area, but no redness. He has had some fevers up to 102, however, he denies any known trauma to the area and is actually not having any pain related to his hip. PAST MEDICAL HISTORY: Hyperlipidemia, hypertension, and obesity. PAST SURGICAL HISTORY: Left hip replacement. ALLERGIES: HE HAS NO KNOWN DRUG ALLERGIES. MEDICATIONS: Outpatient medications include; 1. Atorvastatin. 2. Zyrtec. 3. Flonase. 4. Lisinopril/hydrochlorothiazide. 5. P.r.n. ibuprofen. Inpatient medications include; 1. Aspirin. 2. Atorvastatin. 3. P.r.n. Tylenol. 4. P.r.n. [place]. 5. Pepcid. 6. Iron. 7. Flonase. 8. Lisinopril/hydrochlorothiazide. 9. Multivitamin. 10. Docusate with senna. 11. P.r.n. tramadol. 12. Phenergan p.r.n. PHYSICAL EXAMINATION: VITAL SIGNS: The patient reportedly had fever up to 102, I see one temperature of 101.9 documented yesterday evening, today he has been afebrile. GENERAL: Reveals a healthy-appearing man, in no acute distress. He is moving about in bed easily. HEENT: Unremarkable. NECK: Supple without lymphadenopathy. HEART: Regular in its rate and rhythm without murmurs, rubs, or gallops. LUNGS: Clear. ABDOMEN: Soft and benign. SKIN: His left hip dressing is intact without bleeding. The right buttock has a small blister. The skin is not cellulitic or erythematous, but there is some induration and tenderness to palpation around the blister on the right side that is not present on the left. No lymphangitic streaking and no fluctuance. EXTREMITIES: Warm and well perfused. NEURO: No focal deficits. PSYCHIATRIC: Alert, oriented, and appropriate. LABORATORY DATA: White count is mildly elevated at 12, hematocrit is stable at 32. ASSESSMENT: Right buttock pain. He has induration and tenderness and a blister, but no cellulitis or fluctuance. It almost looks like mechanical trauma as if the patient could have a hematoma, pressure damage is also within the differential, although this seems less likely. I ordered an ultrasound of the area, which did not show any drainable fluid collection, just edema in the soft tissues. Since there is no hematoma cavity or abscess cavity to drain, we will just keep an eye on this area for now. If at any point, he develops fluctuance or a fluid pocket then I and D would be indicated, but currently there is nothing to drain. I am going to be out until the end of the week, but Dr. Sheikh will check on him tomorrow. The patient is also welcome to follow up as an outpatient to my clinic. Job ID: [id number]
[2018-02-14 05:55] LABS: Hemoglobin 10.6 g/dL (14.0-18.0); Mean Corpuscular HGB CONC 33.7 g/dL (32.0-36.0); Mean Corpuscular Hemoglobin 30.4 pg (27.0-31.0); Mean Corpuscular Volume 90.4 fL (78.0-98.0); Mean Platelet Volume 8.3 fL (7.4-10.4); Platelet Count 249 thou/uL (130-400); RBC Distribution Width 11.2 % (11.5-14.5); Red Blood Cell (RBC) Count 3.47 mill/uL (4.70-6.10)
[2018-02-14] MEDS: Aspirin 81 mg Enteric Coated Tablet PO SCH (07:39)
[2018-02-14] MEDS: Famotidine 20 MG TAB PO SCH (07:39)
[2018-02-14] MEDS: Ferrous Gluconate 324 MG TAB PO SCH (07:40)
[2018-02-14] MEDS: Loratadine 10 MG TAB PO SCH (07:40)
[2018-02-14] MEDS: Multivitamin W/ Minerals 1 TAB PO SCH (07:40)
[2018-02-14] MEDS: Senokot S 8.6-50 MG TAB PO SCH (07:40)
[2018-02-14] MEDS: Lisinopril/Hydrochlorothiazide 10 mg/12.5 mg Tablet PO SCH (07:41)
[2018-02-14 08:27] VITALS: BP 133/72; TEMP 99
[2018-02-14 10:55] VITALS: BMI 33.0
[2018-02-14] MEDS: Fluticasone Propionate Nasal Spray 16 gm Bottle NASAL SCH (11:59)
== END 2018-02-14 11:56 | disposition home or self-care (01) | DRG 470 ==
LOC: SURG A 02-10 05:40 → SJJU 02-10 09:48
PROVIDERS: ADMIT Orthopaedic Surgery; ATTEND Orthopaedic Surgery
PROC: 0SRB0JA Replacement of Left Hip Joint with Synthetic Substitute, Uncemented, Open Approach (ICD-10-PCS; principal; 2018-02-10)
DX: M16.52 Unilateral post-traumatic osteoarthritis, left hip (principal); E78.5 Hyperlipidemia, unspecified; I10 Essential (primary) hypertension; E66.9 Obesity, unspecified; Z68.33 Body mass index [BMI] 33.0-33.9, adult; D64.9 Anemia, unspecified
CPT/HCPCS: 36415; 76999; 85027; G8978-GP-CK; G8979-GP-CI; G8987-GO-CK; G8988-GO-CI; J1885; J2001; J2250; J2405; J2704; J3010; J3370; J7050

== ENCOUNTER 2018-01-28 09:26 | Outpatient (CLI) | payer OTHER ==
[2018-01-28 10:26] LABS: #Eosinphils 0.2 thou/uL (0.0-0.7); #Lymphocytes 1.8 thou/uL (1.20-3.40); #Monocytes 0.6 thou/uL (0.11-0.59); %Basophils 0.2 % (0.0-1.0); %Eosinophils 1.6 % (0.0-10.0); %Lymphocytes 18.8 % (21.0-51.0); %Monocytes 6.4 % (0.0-10.0); Hemoglobin 14.1 g/dL (14.0-18.0); Mean Corpuscular HGB CONC 33.9 g/dL (32.0-36.0); Mean Corpuscular Hemoglobin 30.8 pg (27.0-31.0); Mean Corpuscular Volume 90.8 fL (78.0-98.0); Mean Platelet Volume 8.5 fL (7.4-10.4); Platelet Count 290 thou/uL (130-400); RBC Distribution Width 11.3 % (11.5-14.5); White Blood Cell (WBC) Count 9.6 thou/uL (4.8-10.8)
[2018-01-28 10:29] LABS: PTT 33.2 SEC (22.9-36.1); Prothrombin Time 13.6 SEC (12.0-14.7)
[2018-01-28 10:48] LABS: Anion Gap 12 mmol/L (10-20); BUN (Urea Nitrogen) 21 mg/dL (8.4-25.7); Calc. Creatinine Clearance 0 mL/min (70-130); Calcium 9.5 mg/dL (7.8-10.44); Carbon Dioxide 26 mmol/L (22-29); Chloride 97 mmol/L (98-107); Estimated GFR-MDRD 70; Glucose 97 mg/dL (70-105); Potassium 4.3 mmol/L (3.5-5.1); Sodium 131 mmol/L (136-145)
[2018-01-28 11:08] LABS: Bilirubin Negative (Negative); Blood, Urine Negative (Negative); Clarity CLEAR (Clear); Glucose, Urine (Dipstick) Negative (Negative); Leukocyte Negative (Negative); Nitrite Negative (Negative); Protein, Urine (Dipstick) Negative (Neg-Trace); Specific Gravity, Urine 1.005 (1.002-1.036); Urobilinogen 0.2 mg/dL (0.2-1.0); pH, Urine 5.5 (5.0-9.0)
[2018-01-28 11:11] LABS: Bacteria/HPF None Seen HPF (None Seen); Hyaline Casts/LPF 0-3 HYALINE CAST LPF (0-3 Hyaline); RBC/HPF 0-3 HPF (0-3); Squamous Epithelial None Seen HPF (0-3); WBC/HPF None Seen HPF (0-3)
== END 2018-01-28 09:27 | disposition home or self-care (01) ==
LOC: LABBT 09:26
PROVIDERS: ATTEND Orthopaedic Surgery
DX: Z01.818 Encounter for other preprocedural examination (principal); M16.52 Unilateral post-traumatic osteoarthritis, left hip
CPT/HCPCS: 80048; 81001; 85025; 85610; 85730; 87081; 93005; 93010

== ENCOUNTER 2018-02-03 08:27 | Outpatient (CLI) | payer OTHER | END 2018-02-03 08:28 | disposition home or self-care (01) | LOC: LABBT 08:27 | PROVIDERS: ATTEND Orthopaedic Surgery | DX: Z01.812 Encounter for preprocedural laboratory examination (principal); M16.52 Unilateral post-traumatic osteoarthritis, left hip | CPT/HCPCS: 86850; 86900; 86901 ==